=== PATIENT | male | born 1965 | race Caucasian/White ===

== ENCOUNTER 2025-02-26 19:39 | Emergency (ER) | payer OTHER, SELFPAY ==
[2025-02-26 19:45] VITALS: BP 181/110
[2025-02-26 20:12] LABS: Hematocrit 41.4 % (39.0-52.0); Hemoglobin 14.3 g/dL (13.0-18.0); Mean Corp Hgb Conc. 34.5 g/dL (33.0-37.0); Mean Corpuscular Volume 91.6 fL (80.0-94.0); Nucleated Red Blood Cells % 0 % (-); Platelet Count 181 10^3/uL (130-400); Red Cell Dist. Width 12.7 % (11.5-14.5)
[2025-02-26 20:29] LABS: ALT (SGPT) 22 U/L (0-50); AST (SGOT) 24 U/L (17-59); Albumin 4.4 g/dl (3.5-5.0); Alkaline Phosphatase 77 U/L (38-126); Blood Urea Nitrogen 17 mg/dl (9-20); Calcium 9.1 mg/dl (8.4-10.2); Carbon Dioxide 28 mmol/L (22-30); Chloride 101 mmol/L (98-107); Glucose 137 mg/dl (70-99); Potassium 4.3 mmol/L (3.5-5.1); Sodium 136 mmol/L (135-145); Total Protein 7.3 g/dl (6.3-8.2); eGFR > 60.00
[2025-02-26 20:36] LABS: Troponin I < 0.012 ng/ml
[2025-02-26 21:39] VITALS: BMI 37.0
[2025-02-26 22:00] VITALS: BP 143/86
--- NOTE | 2025-02-26 22:02 | ED.GENMED ---
History of Present Illness
General
Chief Complaint: Chest Pain
Time Seen by Provider: 02/26/25 22:02
History of Present Illness
History of Present Illness:
FOCUSED PAST MEDICAL HISTORY
- Seizures, high blood pressure
REVIEW OF OLD RECORDS
- The patient was seen here in the emergency department 2017 diagnosed with a cervical radiculopathy
Note:
CHIEF COMPLAINT(S)
Sharp pain under the left arm, described as being near the armpit.
HISTORY OF PRESENT ILLNESS
The patient is a 59-year-old male with no known history of coronary artery disease but a family history of heart disease in his first-degree relatives, specifically his father. He presents with complaints of sharp pain in the left-sided armpit area.
The pain began around 6:30 PM on the day of presentation and occurred a few times throughout the evening. He did not describe this as a typical crushing chest pressure but rather discomfort specific to the left armpit area. The patient mentioned
belching, suggesting a possible gastrointestinal component. He denied any associated significant shortness of breath or abdominal pain. He reported that the pain does not increase with deep breaths. Initial cardiac workup was unremarkable, but due
to the nature of the symptoms, repeat cardiac enzyme tests were ordered. Upon arrival at the facility, his blood pressure was elevated at 190 mmHg systolic but stabilized to 143/86 mmHg.
PAST MEDICAL AND SURIGICAL HISTORY
Not explicitly discussed.
FAMILY HISTORY
The patient has a family history of heart disease, specifically in his father.
PHYSICAL EXAM
General: Alert, no acute distress. Has a significantly elevated BMI.
Skin: Warm, dry.
Head: Normocephalic, atraumatic.
Neck: Supple, trachea midline.
Eye, Ears, Nose, and Throat: Oral mucosa moist.
Cardiovascular: Normal peripheral perfusion, no edema. Slightly elevated blood pressure on presentation, which stabilized.
Respiratory: Respirations are non-labored; breath sounds are equal bilaterally.
Gastrointestinal: Abdomen nondistended.
Back: Normal range of motion, normal alignment.
Musculoskeletal: Normal range of motion, normal strength.
Neurological: Alert and oriented to person, place, time, and situation. No focal neurological deficit observed.
Psychiatric: Cooperative, appropriate mood and affect.
PROBLEM LIST
Acute:
- Sharp left armpit pain of unknown etiology
PLAN
- Repeat cardiac enzyme testing to rule out cardiovascular causes, given the family history of heart disease.
- Referral to a box stamper for further cardiovascular evaluation. The patient was given the option of [facility] or [facility], and he expressed a preference for [facility]. Referral arrangements were facilitated accordingly.
DIFFERENTIAL DIAGNOSIS
The Differential Diagnosis includes, in no particular order and is not limited to:
1. Musculoskeletal pain
2. Costochondritis
3. Gastroesophageal reflux disease (GERD)
4. Ischemic heart disease
5. Cardiomyopathy
6. Pericarditis
7. Aortic dissection
8. Pneumothorax
9. Pulmonary embolism
10. Anxiety-related pain
Disposition:
SUMMARY OF ENCOUNTER
The patient is a 59-year-old male who presented to the emergency department with complaints of sharp pain in the left-sided armpit area, with a family history of heart disease in first-degree relatives. He was assessed but did not show any immediate
signs of a heart attack, as initial cardiac workup was unremarkable. Despite the unremarkable workup, given the patients family history of coronary disease, follow-up with a box stamper was advised. A referral to [facility] was
preferred by the patient for further cardiovascular evaluation, and arrangements were facilitated accordingly.
ASSESSMENT
The patient potentially has underlying coronary disease, given his family history, although acute myocardial infarction was ruled out during this visit.
PLAN
The patient was advised to follow up with a box stamper for further evaluation of potential coronary artery disease. Referral to [facility] was provided, and discharge instructions were given accordingly.
PATIENT EDUCATION AND COUNSELING
The patient and his family were informed that while no acute heart attack was detected, family history suggests the possibility of underlying coronary disease. The importance of cardiology follow-up was emphasized to assess and manage potential
cardiovascular risks.
FOLLOW-UP INSTRUCTIONS
The patient is to follow up with [facility]. Contact information for Dr. Gee at [facility] and Dr. Dubois at [facility] was provided for convenience. The patient was advised to schedule an appointment promptly to
evaluate cardiovascular health further.
MEDICAL DECISION MAKING
- Number and Complexity of Problems Addressed: Chronic conditions affecting care include family history of heart disease. Differential Diagnosis includes musculoskeletal pain, costochondritis, gastroesophageal reflux disease (GERD), ischemic heart
disease, cardiomyopathy, pericarditis, aortic dissection, pneumothorax, pulmonary embolism, and anxiety-related pain.
- Data:
Category 1
- Lab tests ordered: cardiac enzyme testing
Category 3
- Discussion of management with the cardiology team to arrange follow-up with [facility].
- Risk:
Prescription medication management was not initiated; focus was on arranging cardiology follow-up for further assessment of cardiovascular risk.
DIAGNOSIS
Left-sided lateral chest wall pain
EKG
- Sinus 84, nonspecific ST abnormality, no significant change from 04/08/2016
LABS
- CBC unremarkable, chemistries unremarkable, initial troponin less than 0.012
UPDATE
- Patient prefers to follow-up with [facility] over [facility]
- 2 troponins unremarkable
- Remains very comfortable in appearance throughout stay in the ED
- Breath sounds are clear and equal
Past History
Past History
ED Past Medical History: Seizures
Social History
Tobacco: Non-smoker
Family History
Family History: CAD
Phy Exam
Physical Exam
Physical Exam:
See HPI
Scores
Heart Score for Chest Pain Patients
STEMI patient?: Not applicable
Course
Orders/Labs/Results
Orders:
Orders
02/26/25 19:40
Electrocardiogram (*1) Urgent
Reason for Study: Chest Pain
EKG- Treatment ONCE
02/26/25 20:01
Complete Blood Count/With Diff Urgent
Comprehensive Metabolic Panel Urgent
Troponin I Urgent
02/26/25 22:11
EKG- Treatment ONCE
02/26/25 22:30
Electrocardiogram (*1) Urgent
Reason for Study: Chest Pain
02/26/25 22:40
Troponin I Urgent
Abnormal Lab Results
02/26/25
20:01
RBC 4.52 L 10^6/uL
(4.70-6.10)
MCH 31.6 H pg
(27.0-31.0)
Abs Immat Gran (auto) 0.1 H 10^3/uL
(0-0.05)
Absolute Monos (auto) 0.8 H 10^3/uL
(0.1-0.6)
Immature Gran % 0.6 H %
(0-0.5)
Monocytes % 9.9 H %
(1.7-9.3)
Glucose 137 H mg/dl
(70-99)
02/26/25 20:01
02/26/25 20:01
Vital Signs
Initial and Last Documented VS:
Initial Vital Signs
Temp Pulse Resp BP Pulse Ox
36.7 C 89 20 181/110 95
02/26/25 19:45 02/26/25 19:45 02/26/25 19:45 02/26/25 19:45 02/26/25 19:45
Last Documented Vital Signs
Temp Pulse Resp BP Pulse Ox
36.7 C 67 18 151/89 97
02/26/25 19:45 02/26/25 23:45 02/26/25 23:45 02/26/25 23:00 02/26/25 23:45
*Pulse Oximetry
SaO2: 96
Oxygen Mode of Delivery: Room air
Patient hypoxic: no
*Critical Care Note
Total Time (30-74mins, 75-104mins- exclusive of procedures): Not Applicable
ED Attending Note
-
Portions of this chart may have been created with voice recognition software.� Occasional wrong word or��sound alike� substitutions may have occurred due to the inherent limitations of voice recognition software.
Discharge Plan
Departure
Patient Disposition: Home (Routine Discharge)
Date of Disposition: 02/26/25
Time of Disposition: 23:39
Patient with high blood pressure during this ER visit?: Yes
Discharge Problem:
Chest pain
Instructions: Chest Pain CBC Follow Up, BLOOD PRESSURE
Prescriptions:
No Action
Tami
1 tab PO DAILY
levetiracetam 500 MG tablet
1,500 mg PO HS
levetiracetam 500 MG tablet
1,000 mg PO DAILY
aspirin 81 MG tablet,delayed release (DR/EC)
81 mg PO DAILY
carbamazepine 200 MG tablet
400 mg PO TID
tamsulosin 0.4 MG capsule
0.4 mg PO HS
ibuprofen 600 MG tablet
600 mg PO PRN PRN (Reason: pain)
hydrocodone-acetaminophen [Vicodin] 1 EACH tablet
1 ea PO PRN PRN (Reason: pain)
calcium-vitamin D3-vitamin K 1 EACH tablet,chewable
1 ea PO DAILY
gabapentin 300 MG capsule
300 mg PO TID Qty: 30 0RF
Rx Instructions:
Start 1 tab at bedtime and increase up to 3 times a day as tolerated for neuropathy pains.
Referrals:
NONE,* [Family Provider, Internal Medicine]
Ran Gordon MD [Active, Cardiology]
Rukhsana Gee MD [Active, Cardiology]
Activity Restrictions/Additional Instructions:
Two cardiac blood tests are normal. Follow up with box stamper (Dr. Gee - CBC); (Dr. Hull - DCA). Return if worse or other concerns.
Interventions
Interventions:
*Risk Screen - Suicide Last Done: 02/26/25 19:45
*General Assessment Last Done: 02/26/25 19:45
*Neglect/Abuse Screening Last Done: 02/26/25 19:45
*ED COVID-19 Vaccine History Last Done: 02/26/25 19:45
*ED Influenza Vaccine History Last Done: 02/26/25 19:45
[facility] Fall Risk Assessment Tool Last Done: 02/26/25 21:39
*Nursing Disposition Last Done: 02/26/25 23:58
ED- Cardiac Assessment Last Done: 02/26/25 21:39
Discharge Date and Time
Discharge Date/Time: 02/27/25 00:05
Print Language: JORDANIAN
[2025-02-26 23:00] VITALS: BP 151/89
[2025-02-26 23:23] LABS: Troponin I 0.013 ng/ml
== END 2025-02-27 00:05 | disposition home or self-care (01) ==
LOC: EMR 19:39
PROVIDERS: Student in an Organized Health Care Education/Training Program; EMERGENCY PHYSICIAN Emergency Medicine
DX: R07.9 Chest pain, unspecified (principal); I10 Essential (primary) hypertension; Z79.82 Long term (current) use of aspirin; Z82.49 Family history of ischemic heart disease and other diseases of the circulatory system
CPT/HCPCS: 99284; 80053; 84484; 85025; 93005

== ENCOUNTER → 2025-03-10 13:34 | Outpatient (REF) | payer OTHER, SELFPAY | LOC: RCS 13:34 | PROVIDERS: ATTENDING PHYSICIAN Internal Medicine Cardiovascular Disease | DX: R07.89 Other chest pain (principal); I10 Essential (primary) hypertension; Z82.49 Family history of ischemic heart disease and other diseases of the circulatory system; R93.89 Abnormal findings on diagnostic imaging of other specified body structures | CPT/HCPCS: 93017 ==

== ENCOUNTER → 2025-03-14 14:22 | Outpatient (REF) | payer OTHER, SELFPAY | LOC: RCS 14:22 | PROVIDERS: ATTENDING PHYSICIAN Internal Medicine Cardiovascular Disease; FAMILY PHYSICIAN Student in an Organized Health Care Education/Training Program | DX: R07.89 Other chest pain (principal); I10 Essential (primary) hypertension; Z82.49 Family history of ischemic heart disease and other diseases of the circulatory system; R93.89 Abnormal findings on diagnostic imaging of other specified body structures | CPT/HCPCS: 93306 ==